=== PATIENT | male | born 1990 | race Caucasian/White ===

== ENCOUNTER 2017-05-05 21:43 | Emergency (ER) | payer OTHER, BC ==
[2017-05-05] MEDS ORDERED: LIDOCAINE HCL 1% MPF SOL INFIL ONE (21:50)
[2017-05-05] MEDS ORDERED: LIDOCAINE HCL 1% MPF SOL ONE (21:53)
[2017-05-05] MEDS ORDERED: TDAP VACCINE 0.5 ML SUS IM ONE ×2 (21:57→21:59)
[2017-05-05] MEDS ORDERED: BACITRACIN 500 U/GM OIN TOP ONE ×2 (22:04→22:05)
[2017-05-05 22:10] VITALS: RESP 18; TEMP 98.2
[2017-05-05 22:21] VITALS: BP 133/77; PULSE 84; O2SAT 97
== END 2017-05-05 22:15 | disposition home or self-care (01) | DRG 605 ==
LOC: ED 21:43
DX: S61.211A Laceration without foreign body of left index finger without damage to nail, initial encounter (principal); W26.0XXA Contact with knife, initial encounter; Y99.0 Civilian activity done for income or pay
CPT/HCPCS: 90715; 99285; A9270-GY; J2001